=== PATIENT | female | born 1995 | race Caucasian/White ===

== ENCOUNTER 2022-10-20 13:40 | Emergency (ER) | payer MEDICAID ==
[~2022-10-20] VITALS: Ht 160 cm; Wt 82.1 kg
[2022-10-20 13:58] VITALS: BP 132/85; PULSE 95; RESP 20; TEMP 97.6; O2SAT 97
[2022-10-20] MEDS ORDERED: ACETAMINOPHEN 325 MG TAB PO ONE (14:40)
[2022-10-20] MEDS ORDERED: ACET-9882 PO (14:42)
--- NOTE | 2022-10-20 15:00 | NUR ---
WOUND TO LEFT HAND, PINKY AND RING FINGER, IRRIGATED WITH BETADINE x NS, DRESSING APPLIED, TAPE APPLIED .
[2022-10-20 15:40] VITALS: BP 130/79; PULSE 88; RESP 18; TEMP 97.7; O2SAT 97
== END 2022-10-20 15:40 | disposition home or self-care (01) ==
LOC: MED 13:40
DX: S61.307A Unspecified open wound of left little finger with damage to nail, initial encounter (principal); S61.305A Unspecified open wound of left ring finger with damage to nail, initial encounter; X58.XXXA Exposure to other specified factors, initial encounter; Y93.89 Activity, other specified; Y92.89 Other specified places as the place of occurrence of the external cause; Y99.8 Other external cause status
CPT/HCPCS: 11730; 90471; 90715; 99283; 99284